=== PATIENT | female | born 1965 | race Caucasian/White ===

== ENCOUNTER → 2017-06-21 | Outpatient (CLI) | payer OTHER | LOC: BRMIMAGING 09:47 | PROVIDERS: ATTEND Internal Medicine | DX: Z12.31 Encounter for screening mammogram for malignant neoplasm of breast (principal) ==

== ENCOUNTER → 2017-07-02 | Outpatient (CLI) | payer OTHER | LOC: CIMAGING 13:10 | PROVIDERS: ATTEND Internal Medicine | DX: R92.0 Mammographic microcalcification found on diagnostic imaging of breast (principal); R92.2 Inconclusive mammogram ==

== ENCOUNTER → 2018-01-03 | Outpatient (CLI) | payer OTHER | LOC: CIMAGING 12:01 | PROVIDERS: ATTEND Internal Medicine | DX: R92.1 Mammographic calcification found on diagnostic imaging of breast (principal) ==

== ENCOUNTER → 2018-07-05 | Outpatient (CLI) | payer OTHER | LOC: EMCIMAGING 07:50 | PROVIDERS: ATTEND Internal Medicine | DX: M48.02 Spinal stenosis, cervical region (principal) | CPT/HCPCS: 72156-PN ==

== ENCOUNTER → 2018-08-02 | Outpatient (CLI) | payer OTHER | LOC: CIMAGING 10:58 ==